=== PATIENT | female | born 1940 | race Caucasian/White ===

== ENCOUNTER 2017-04-27 16:09 | Emergency (ER) | payer MEDICARE ==
[~2017-04-27] VITALS: Ht 152.4 cm; Wt 74.0 kg
[~2017-04-27 16:09] MED LIST: FLUO40CA PO; GABA300C5 PO; LOSA50TA PO; OMEP20TA PO
[2017-04-27 16:27] VITALS: BP 146/74; PULSE 77; RESP 16; TEMP 98.2; O2SAT 97
--- NOTE | 2017-04-27 17:25 | PD ---
HPI Chief Complaint: GI Complaint Time Seen by Provider: 17:22 Travel History International Travel<30 days: No Contact w/Intl Traveler<30days: No Traveled to known affect area: No History of Present Illness HPI 76-year-old female here for evaluation of constipation. The patient reports that she has not had a bowel movement in 2 weeks. She has tried several over- the-counter laxatives without success. She is having intermittent abdominal bloating. No real abdominal pain. She denies nausea or vomiting. History of cholecystectomy. [facility] Past Medical History Diminished Hearing: No GERD: Yes Hypertension: Yes Tetanus Vaccination: < 5 Years Influenza Vaccination: Yes ?: Not Past Surgical History Appendectomy: Yes Other Surgery: Yes (bilat breast biospsies, liposuction) Social History Alcohol Use: Yes ([facility]) Tobacco Use: No Substance Use: No Allergies-Medications (Allergen,Severity, Reaction): Coded Allergies: No Known Allergies (Unverified , 04/09/17) Reported Meds & Prescriptions Reported Meds & Active Scripts Active Losartan (Losartan Potassium) 50 Mg Tab 50 Mg PO DAILY Omeprazole 20 Mg Tab 20 Mg PO DAILY Gabapentin 300 Mg Cap 300 Mg PO HS Fluoxetine (Fluoxetine HCl) 40 Mg Cap 40 Cap PO DAILY Review of Systems Except as stated in HPI: all other systems reviewed are Neg Physical Exam Narrative GENERAL: Well-developed, well-nourished, comfortable, no acute distress. SKIN: Focused skin assessment warm/dry. HEAD: Atraumatic. Normocephalic. EYES: Pupils equal and round. No scleral icterus. No injection or drainage. ENT: Mucous membranes pink and moist. CARDIOVASCULAR: Regular rate and rhythm. RESPIRATORY: No accessory muscle use. Clear to auscultation. Breath sounds equal bilaterally. GASTROINTESTINAL: Abdomen soft, nondistended. Normal bowel sounds in all 4 quadrants. No hernias. RECTUM: Exam performed in the presence of a female nurse. No masses, no hemorrhoids, no fissures, small amount of hard stool in rectal vault. MUSCULOSKELETAL: No obvious deformities. No clubbing. No cyanosis. No edema. NEUROLOGICAL: Awake and alert. No obvious cranial nerve deficits. Motor grossly within normal limits. Normal speech. PSYCHIATRIC: Appropriate mood and affect; insight and judgment normal. Data Data Last Documented VS Vital Signs Date Time Temp Pulse Resp B/P Pulse Ox O2 Delivery O2 Flow Rate FiO2 04/27/17 16:27 98.2 77 16 146/74 97 MDM Medical Decision Making Medical Screen Exam Complete: Yes Emergency Medical Condition: Yes Differential Diagnosis Constipation, bowel obstruction less likely Narrative Course This is a 76-year-old female who is here because she has not had a bowel movement in the last 2 weeks. She has had some abdominal bloating sensation. Other than that she has had no other symptoms. She has tried several over-the- counter laxatives and has not had a bowel movement. She has not been vomiting. Abdominal exam shows no tenderness with normal bowel sounds throughout. No hernias. Rectal exam shows only a small amount of hardened stool in rectal vault. No rectal mass, fissure, or hemorrhoid. At this point my plan is he'll the patient a prescription for lactulose. She will also have her administer fleets enemas at home. PMD follow-up this week. She was informed on when to return to the emergency department. She verbalizes understanding and agreement with plan. Diagnosis Primary Impression: Constipation Qualified Code: K59.00 - Constipation, unspecified constipation type Referrals: Primary Care Physician 3 days Additional Instructions: Take medication as prescribed. Use fleets enemas at home. Follow-up with your primary care physician this week. Return to the emergency department for worsening symptoms or any other concerns. Scripts Lactulose Liq 10 Gm/15 Ml Soln30 Ml PO Q8HR PRN (CONSTIPATION) 5 Days Ref 0 Prov:Jonah Loomis MD 04/27/17 Disposition: 01 DISCHARGE HOME Condition: Stable Jonah Loomis MD Apr 27, 2017 17:25
[2017-04-27] MEDS ORDERED: LACT10SO PO (17:33)
== END 2017-04-27 17:43 | disposition home or self-care (01) ==
LOC: PHED 16:09
DX: K59.00 Constipation, unspecified (principal); R14.0 Abdominal distension (gaseous); I10 Essential (primary) hypertension; Z87.19 Personal history of other diseases of the digestive system
CPT/HCPCS: 99283